=== PATIENT | female | born 1945 | race Asian ===

== ENCOUNTER 2020-09-10 13:48 | Inpatient (IN) | payer OTHER ==
[~2020-09-10] VITALS: Ht 149.9 cm; Wt 55.7 kg
[2020-09-10] MEDS ORDERED: ACTIVATED CHARCOAL 50 GM/240 ML SOL PO ONE (14:15)
[2020-09-10] MEDS ORDERED: ONDANSETRON HCL 4 MG/2 ML VIAL IV ONE (14:45)
[2020-09-10 14:46] LABS: Basophils # (auto) 0.1 10 ^3/uL (0-0.2); Basophils % (auto) 1.1 % (0.0-2.0); Eosinophils # (auto) 0.4 10 ^3/uL (0-0.8); Eosinophils % (auto) 6.1 % (0.0-7.0); Hematocrit 40.8 % (36.0-46.0); Hemoglobin 13.9 g/dL (12.2-16.2); Lymphocytes # (auto) 1.2 10 ^3/uL (0.4-5.4); Lymphocytes % (auto) 19.9 % (10.0-50.0); Mean Corpuscular Hemoglobin 32.2 pg (28.0-32.0); Mean Corpuscular Volume 94.6 fL (80.0-100.0); Monocytes # (auto) 0.5 10 ^3/uL (0-1.3); Monocytes % (auto) 7.5 % (0.0-12.0); Neutrophils % (auto) 65.4 % (37.0-80.0); Nucleated Red Blood Cells % 0.1 %; Red Blood Cells 4.31 10^6/uL (4.0-5.20); Red Cell Distribution Width 12.6 % (11.8-14.3); White Blood Cell 6.1 10^3/uL (4.4-10.8)
[2020-09-10 14:56] LABS: Albumin 4.2 g/dL (3.4-5.0); Anion Gap 8 (5-15); BUN/Creatinine Ratio 31.8; Blood Alcohol < 3.0 mg/dL (0-5); Blood Urea Nitrogen 35 mg/dL (7-18); Carbon Dioxide 23 mmol/L (21-32); Chloride 108 mmol/L (98-107); GFR African American 62 mL/min; GFR Non-African American 51 mL/min; Glucose 112 mg/dL (74-106); Magnesium 1.4 mg/dL (1.6-2.6); Potassium 4.1 mmol/L (3.5-5.1); Sodium 139 mmol/L (136-145)
[2020-09-10 14:59] LABS: Alanine Aminotransferase 23 U/L (13-56); Alkaline Phosphatase 58 U/L (45-117); Aspartate Aminotransferase 10 U/L (15-37); Bilirubin, Total 0.4 mg/dL (0.2-1.0); Lactic Acid w/Reflex 2.8 mmol/L (0.4-2.0); Total Protein 7.2 g/dL (6.4-8.2)
[2020-09-10 15:01] LABS: Urine Bacteria MOD /hpf (None Seen); Urine Blood Negative /uL (Negative); Urine WBC 3 /hpf (0 - 5)
[2020-09-10 15:02] LABS: Acetaminophen < 2.0 ug/mL (10-30); Salicylate < 1.7 mg/dL (2.8-20.0)
[2020-09-10 15:16] LABS: Alcohol, Urine < 3.0 mg/dL (0-10); Amphetamine Screen, Urine NEGATIVE (NEGATIVE); Barbiturate Scree,Urine NEGATIVE (NEGATIVE); Benzodiazephine Screen, Urine NEGATIVE (NEGATIVE); Cannabinoid Screen, Urine NEGATIVE (NEGATIVE); Cocaine Screen, Urine NEGATIVE (NEGATIVE); Phencyclidine Screen, Urine NEGATIVE (NEGATIVE)
[2020-09-10 15:25] LABS: Opiate Scree,Urine POSITIVE (NEGATIVE)
[2020-09-10] MEDS ORDERED: DEXTROSE (50%) 50ML SYRG IV PRN (17:45)
[2020-09-10] MEDS ORDERED: ONDANSETRON HCL 4 MG/2 ML VIAL IV PRN (17:45)
[2020-09-10] MEDS ORDERED: NITROGLYCERIN 0.4 MG SL TAB SL PRN (17:45)
[2020-09-10] MEDS ORDERED: MORPHINE SULFATE INJECTION 2 MG/ML SYRG IV PRN (17:45)
[2020-09-10] MEDS ORDERED: SODIUM CHLORIDE 0.9% 1,000 ML IV SCH (17:45)
[2020-09-10] MEDS ORDERED: cefTRIAXone 1GM/50ML D5W 50 ML IV ONE (17:45)
[2020-09-10 19:45] LABS: BUN/Creatinine Ratio 23.5; Calcium 8.4 mg/dL (8.5-10.1); Potassium 4.7 mmol/L (3.5-5.1)
[2020-09-10 19:48] LABS: Lactic Acid w/Reflex 5.6 mmol/L (0.4-2.0)
[2020-09-10] MEDS: ACCU-CHEK COMFORT CURVE STRIP VI SCH (20:00)
[2020-09-10] MEDS ORDERED: SODIUM BICARBONATE 8.4% INJ 50ML SYRINGE ONE (20:40)
[2020-09-10] MEDS: SODIUM BICARBONATE 50ML VIAL 150 ML in D5W 5% 1,000 ML IV SCH (21:05)
[2020-09-10 21:28] LABS: Creatinine, Urine 77 mg/dL (30.0-125.0); Sodium Urine 63 mmol/L (40-220)
[2020-09-11] MEDS: ACCU-CHEK COMFORT CURVE STRIP VI SCH ×7 (00:11→23:57)
[2020-09-11 02:13] LABS: BUN/Creatinine Ratio 22.4; Calcium 8.1 mg/dL (8.5-10.1); Potassium 4.1 mmol/L (3.5-5.1)
[2020-09-11 02:18] LABS: Lactic Acid w/Reflex 2.1 mmol/L (0.4-2.0)
[2020-09-11] MEDS: SODIUM BICARBONATE 50ML VIAL 150 ML in D5W 5% 1,000 ML IV SCH (03:55)
[2020-09-11] MEDS: DEXTROSE 10% 1,000 ML IV SCH (05:33)
[2020-09-11] MEDS ORDERED: cefTRIAXone 1GM/50ML D5W 50 ML IV SCH (09:00)
[2020-09-11] MEDS: PANTOPRAZOLE 40 MG TAB PO SCH (10:05)
[2020-09-11] MEDS ORDERED: METF-370 PO (11:17)
[2020-09-11] MEDS ORDERED: PANT40T PO (11:17)
[2020-09-11] MEDS ORDERED: METO-289 PO (11:17)
[2020-09-11] MEDS ORDERED: HYDR-4298 PO (11:17)
[2020-09-11] MEDS ORDERED: AMLO-496 PO (11:17)
[2020-09-11] MEDS ORDERED: ATOR40TA52 PO (11:17)
[2020-09-11] MEDS ORDERED: DULO1CAP6 PO (11:17)
[2020-09-11] MEDS ORDERED: LOSA-39 PO (11:17)
[2020-09-11] MEDS ORDERED: OXYB5TAB61 PO (11:18)
[2020-09-11] MEDS ORDERED: CITA-73 PO (11:23)
[2020-09-11 13:02] VITALS: BP 138/79
[2020-09-11 13:18] VITALS: BP 117/68
[2020-09-11 16:25] LABS: Hepatitis B Surface Antibody Negative
[2020-09-11 16:55] LABS: Hepatitis C Antibody Negative (Negative)
[2020-09-11 17:04] LABS: Hepatitis A Total Antibody Positive
[2020-09-11 17:05] VITALS: BP 111/62
[2020-09-11 17:13] LABS: Hepatitis B Core Total AB Negative; Hepatitis B Surface Antigen Negative (Negative)
[2020-09-11 21:58] VITALS: BP 117/68
[2020-09-12] MEDS: ACCU-CHEK COMFORT CURVE STRIP VI SCH ×5 (04:52→20:29)
[2020-09-12 05:00] VITALS: BP 117/55
[2020-09-12] MEDS: DEXTROSE 10% 1,000 ML IV SCH (06:40)
[2020-09-12 07:01] LABS: Albumin 3.5 g/dL (3.4-5.0); Calcium 8.8 mg/dL (8.5-10.1); Potassium 3.9 mmol/L (3.5-5.1)
[2020-09-12 07:04] LABS: BUN/Creatinine Ratio 20.3; Bilirubin, Total 0.4 mg/dL (0.2-1.0); Total Protein 6.7 g/dL (6.4-8.2)
[2020-09-12 09:00] VITALS: BP 117/71
[2020-09-12] MEDS: PANTOPRAZOLE 40 MG TAB PO SCH (09:43)
[2020-09-12 13:00] VITALS: BP 120/71
[2020-09-12 14:45] LABS: Urine Bacteria FEW /hpf (None Seen); Urine Blood Negative /uL (Negative); Urine Specific Gravity 1.008 (1.001-1.035); Urine WBC 4 /hpf (0 - 5)
[2020-09-12 17:00] VITALS: BP 130/78
[2020-09-12 22:00] VITALS: BP 131/69
[2020-09-12] MEDS ORDERED: MUPIROCIN 2% OINT 15gm or 22gm EACHNOSTRI SCH (22:00)
[2020-09-13] MEDS: ACCU-CHEK COMFORT CURVE STRIP VI SCH ×6 (01:23→22:44)
[2020-09-13 04:56] VITALS: BP 117/65
[2020-09-13] MEDS: DEXTROSE 10% 1,000 ML IV SCH (06:16)
[2020-09-13 09:00] VITALS: BP 119/67
[2020-09-13] MEDS: PANTOPRAZOLE 40 MG TAB PO SCH (10:42)
[2020-09-13 13:00] VITALS: BP 118/72
[2020-09-13 22:00] VITALS: BP 141/75
[2020-09-14] MEDS: ACCU-CHEK COMFORT CURVE STRIP VI SCH ×6 (01:10→20:36)
[2020-09-14 05:00] VITALS: BP 124/77
[2020-09-14 09:00] VITALS: BP 117/73
[2020-09-14] MEDS: PANTOPRAZOLE 40 MG TAB PO SCH (09:36)
[2020-09-14 13:00] VITALS: BP 137/84
[2020-09-14 17:00] VITALS: BP 130/87
[2020-09-14 20:41] VITALS: BP 117/77
== END 2020-09-14 21:30 | disposition home or self-care (01) | DRG 917 ==
LOC: EDBD 13:48 → ER 13:48 → TELE 17:31 → TELE-EAST 09-11 13:02 → TELE-CENTR 09-14 08:43
PROVIDERS: ADMIT Internal Medicine; ATTEND Internal Medicine
DX: T38.3X2A Poisoning by insulin and oral hypoglycemic [antidiabetic] drugs, intentional self-harm, initial encounter (principal); N17.0 Acute kidney failure with tubular necrosis; E87.2 Acidosis; I10 Essential (primary) hypertension; E11.8 Type 2 diabetes mellitus with unspecified complications; E78.5 Hyperlipidemia, unspecified; Z20.822 Contact with and (suspected) exposure to COVID-19; K21.9 Gastro-esophageal reflux disease without esophagitis; Z83.3 Family history of diabetes mellitus; Z86.73 Personal history of transient ischemic attack (TIA), and cerebral infarction without residual deficits; Y92.89 Other specified places as the place of occurrence of the external cause; Z88.2 Allergy status to sulfonamides
CPT/HCPCS: 36415; 36600; 80048; 80053; 80307; 80320; 80329; 81001; 82570; 82805; 82962; 83036; 83605; 83735; 84300; 85025; 86704; 86706; 86708; 86803; 87086; 87088; 87186; 87340; 87426; 93005; 96365; 96375; 99291; G0378; J0696; J2405